=== PATIENT | male | born 2000 | race African-American/Black ===

== ENCOUNTER 2021-06-30 11:10 | Emergency (ER) | payer OTHER ==
[~2021-06-30] VITALS: Ht 175.3 cm; Wt 56.7 kg
[2021-06-30] MEDS ORDERED: DOXYCYCLINE 10100 MG PO (11:40)
[2021-06-30 12:09] LABS: URINE BILIRUBIN NEGATIVE (Negative); URINE BLOOD NEGATIVE (Negative); URINE CLARITY CLEAR; URINE COLOR YELLOW; URINE GLUCOSE-RANDOM* NEGATIVE (Negative); URINE KETONES NEGATIVE (Negative); URINE LEUKOCYTES-REFLEX 1+ (Negative); URINE NITRITE-REFLEX NEGATIVE (Negative); URINE PROTEIN (DIPSTICK) NEGATIVE (Negative); URINE SPECIFIC GRAVITY 1.025 (1.005-1.035); URINE UROBILINOGEN 0.2 E.U./dl (0.2-1.0)
[2021-06-30 12:17] LABS: CASTS None Seen /LPF (None Seen); SQUAMOUS None Seen /LPF (0-3); URINE WBC-REFLEX >25 Many /HPF (0-5)
[2021-06-30 12:18] LABS: BACTERIA-REFLEX 1-9 Few /HPF (None Seen); CRYSTALS None Seen /LPF (None Seen); URINE RBC None Seen /HPF (NONE SEEN)
[2021-06-30 12:39] VITALS: BP 110/70
== END 2021-06-30 12:41 | disposition home or self-care (01) ==
LOC: ER 11:10
PROVIDERS: Emergency Medicine
DX: N34.2 Other urethritis (principal); F12.90 Cannabis use, unspecified, uncomplicated

== ENCOUNTER 2021-09-30 08:34 | Emergency (ER) | payer OTHER ==
[~2021-09-30] VITALS: Ht 177.8 cm; Wt 54.4 kg
[~2021-09-30 08:34] MED LIST: DOXYCYCLINE 10100 MG PO
[2021-09-30 08:38] VITALS: BP 108/61
== END 2021-09-30 09:06 | disposition home or self-care (01) ==
LOC: ER 08:34
DX: N34.2 Other urethritis (principal)